=== PATIENT | male | born 1990 | race African-American/Black ===

== ENCOUNTER 2018-12-18 17:19 | Emergency (ER) | payer MEDICARE, MEDICAID ==
[~2018-12-18] VITALS: Wt 99.0 kg
[~2018-12-18 17:19] MED LIST: SODI30SP2 NS
[2018-12-18 17:21] VITALS: BP 160/90; PULSE 99; RESP 18
== END 2018-12-18 18:00 | disposition home or self-care (01) ==
LOC: FTE 17:19 → E/R 18:00
DX: R04.0 Epistaxis (principal)
CPT/HCPCS: 99282